=== PATIENT | female | born 1965 | race Caucasian/White ===

== ENCOUNTER 2024-04-20 10:30 | Outpatient (RCR) | payer BC, SELFPAY ==
[2024-04-14 09:36] VITALS: BMI 22.0
[2024-04-14 10:57] VITALS: BP 140/82; PULSE 80; TEMP 36.8
--- NOTE | 2024-04-14 10:57 | PC.ADMIT ---
Patient is a 58 year old female who was referred to [facility] by a friend secondary to increased depression, PTSD, and agoraphobia. Patient reports she has been depressed for the past couple of years and stressed over the pandemic and that's when her depression hit her hard having financial problems, issues with her son, and her 26 year old foster daughter moved in with her with her baby who has medical problems. Patient reports she has been drinking alcohol for the past 15 years on and off along with taking Antabuse on and off for 15 years. Reports last night she had 3 glasses of wine and drank a total of 5 drinks in 2 weeks including last night. Denied any sxs of withdrawal from alcohol. Prior to 2 weeks reports drinking a bottle of wine daily, on and off again. On for 4 days and off for 3 days. Stated she has been a, Heavy drinker for years especially during the pandemic . Few roth ago had 7 months sobriety on Vivitrol. Denied withdrawal symptoms when she stopped drinking at that time. Is interested in MAT with Vivitrol. Will make an appointment with [facility] for MAT. Patient reports on, April 27, 2024 fx rib and brain bleed. Got too drunk and fell off the stairs. Was in ICU for three days in the trauma center . Patient is alert and oriented x4. Calm and cooperative. She presented with depressed mood and anxious affect. Denied SI, No HI. She was given a copy of her safety plan if needed. She reports she has a lot of support from her family and friends. Medications reconciled with patient and patient's pharmacy. She is on MAT with Naltrexone.
--- NOTE | 2024-04-14 11:39 | PC.NURSE ---
Patient has a walk in appointment with [facility] for MAT on 04/20/24 at 1:00pm.
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
--- NOTE | 2024-04-18 15:14 | HO.PHP ---
PHP staff member met with Camryn during the end of group one due to her struggling. PHP staff member followed up with Camryn to explore what was currently affecting her. Camryn disclosed that she woke up feeling anxious and is struggling with a panic attack. Camryn disclosed that she would like to go home. PHP staff member noted that when people are struggling we strongly encourage that they stay because this is the place they need to be for support. PHP staff member asked Camryn if she feels her binge drinking over the weekend and discontinuing yesterday is what is currently causing her to feel this way. 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 Camryn continued to voice she wanted to go home because she doesn't want group members coming up to her and being kind because they knew she left group. PHP staff member stated that the next group is going to be split so she won't be in a group with everyone. Camryn explored what the group would be. PHP staff member informed her what the group topic is and strongly encouraged her to stay. Camryn expressed that she can't and needs to go home. PHP staff member explored what she will be doing at home. Camryn mentioned that she is going to go home and walk her dog and will be around individuals throughout the day. PHP staff member assessed any safety concerns. Camryn reported no concerns around SI, plan or intent and stated she will be in attendance to program tomorrow. PHP staff member was receptive.
--- NOTE | 2024-04-18 15:20 | HO.PHP ---
[facility] staff member contacted Camryn to follow up with her to see how the remainder of her day had gone. [facility] staff member left a voicemail and is awaiting a call back.
--- NOTE | 2024-04-19 15:30 | HO.PHP ---
PHP staff member followed up with Camryn to see how she is doing since she called out sick. Camryn disclosed that she is doing better and noted that yesterday was challenging for, in which she finds the group setting difficult. PHP staff member was receptive and acknowledged that group settings can be challenging and encouraged her to focus on what brought her to the program opposed to focusing on what others are going through. Camryn mentioned she is having a hard time doing that but is going to come to program tomorrow. PHP staff member assessed any safety concerns, Camryn disclosed no concerns around SI, plan or intent. PHP staff member explored when she last engaged in substance use, in which she voiced it was a couple days ago over the weekend. PHP staff was receptive. Camryn mentioned that she would like to talk to Dr. Booker around adrenaline blockers for her anxiety attacks. PHP staff member voiced that she will inform the nurse that she would like to meet with the provider. Camryn was receptive.
--- NOTE | 2024-04-20 13:11 | HO.PHP ---
PHP staff member faxed over a referral for OP therapy, radioisotope technician and med management to [facility]. PHP staff member is awaiting for the scheduled dates and times.
--- NOTE | 2024-04-20 15:00 | HO.PHP ---
Client's case has been opened and reviewed in team.
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
--- NOTE | 2024-04-20 18:26 | HO.PHPPROGNO ---
Subjective Subjective Date of Service: 04/20/24 Reason For Visit: bipolar,personality d/o Interim History: Patient see for follow-up. Still struggling with anxiety. Had a major panic attack on Wednesday which comes in clusters. I try wakling it off and eventually I will isolate until they have abated . Not been sleeping well, nightmares including dreams of drowning. She is interested in TMS but understands that she cant be actively drinking and continues to struggle with cravings and is scheduled for a Vivitrol injection today at 1pm. She is open to treatment for PTSD with prazosin to help mitigate this physical feelings. I feel like there are toxic chemicals coursing through my body Attending Groups: Yes Review of Systems Acute medical concerns: No Mental Status Exam Mental Status Exam Narrative: Alert, oriented, in no acute distress. Nervous, withdrawn. No psychomotor agitation or neurovegetative retardation. Eye contact intermittent. Mood anxious, affect constricted, depressed. Speech normal. Thought process linear, coherent. Thought content related to stressors, denies any hopelessness or SI. Denies any aggressive ideation or HI. No paranoia or delusional content elicited. No evidence of psychosis. Insight and judgment - fair but adequate. Diagnostics Vital Signs (24Hr): BMI result Body Mass Index 22.0 Assessment & Plan Assessment & Plan (1) Alcohol use with alcohol-induced disorder: Status: Acute Code(s): F10.99 - Alcohol use, unspecified with unspecified alcohol-induced disorder Assessment and Plan: compounding anxious distress, isolation and low mood (2) MDD (major depressive disorder), recurrent episode: Status: Acute Code(s): F33.9 - Major depressive disorder, recurrent, unspecified Assessment and Plan: hx of unspecified bipolar depression (3) Other specified episodic mood disorder: Status: Acute Code(s): F39 - Unspecified mood [affective] disorder Assessment and Plan: Cycothymia + SIMD r/o Bipolar II Disorder (4) Panic disorder with agoraphobia and moderate panic attacks: Status: Acute Code(s): F40.01 - Agoraphobia with panic disorder Assessment and Plan: with other mixed anxiety states (generalized anxiety, social anxiety, +/-AIAD) (5) Post traumatic stress disorder (PTSD): Status: Acute Code(s): F43.10 - Post-traumatic stress disorder, unspecified Assessment and Plan: r/o complex PTSD Hx of unspecified Personality Disorder r/o cluster b (borderline) and cluster c (avoidant) traits (6) Cannabis use disorder, mild, abuse: Status: Acute Code(s): F12.10 - Cannabis abuse, uncomplicated Assessment and Plan: r/o cannabis-induced anxiety disorder (exacerbating) (7) Personal history of traumatic brain injury: Status: Acute Code(s): Z87.820 - Personal history of traumatic brain injury Plan Start prazosin 1 mg qhs-bid PRN sleep, anxiety Consider AUD treatment/recovery options Anticipate routine lab work next week EKG, routine for baseline QTc for medication considerations UDS as indicated MassPat reviewed Continue to monitor Patient educated on: diagnosis, medication risk/benefits and substance abuse Informed Consent: understands Reason for contiued partial hosp. stay Substantial Risk for: inability to function and med/psych decompensation Certification I certify that partial hospital treatment is medically necessary due to the symptoms and problems resulting from the patient's mental illness and the failure to treat the patient at the partial hospital level of care would likely result in the patient requiring inpatient psychiatric care which could not be prevented at a less intensive level of care. Total time managing care of this patient today ___30_ minutes. Discharge Plan Discharge Attending provider: Nereyda Booker Medications: New prazosin 1 mg capsule 1 mg PO BEDTIME Qty: 20 0RF No Action naltrexone 50 mg tablet 50 mg PO DAILY Patient Comments: Last took a week ago. hydroxyzine HCl 10 mg tablet 10 mg PO BID PRN (Reason: anxiety) Stand Alone Forms: Patient Portal Discharge page Print Language: Icelandic
--- NOTE | 2024-04-21 08:26 | HO.PHP ---
PHP admin, Marilee, informed the team that Camryn will not be in attendance to program today because the individual who watches her granddaughter has COVID and there is no childcare. Camryn reported no safety concerns and will be here on Wednesday.
--- NOTE | 2024-04-21 10:42 | HO.PHP ---
[facility] staff member received a phone call from Deann through [facility] with the OP therapy appointment and med management appointment for [place]. [place] is intake OP therapy appointment is scheduled for May 01, 2024 at 10 AM with Macy Bustos at [address] [place] [address]. [place] has an med provider appointment scheduled with José Luis Mendoza on May 22, 2024 at 9 AM.
== END 2024-04-20 23:59 | disposition home or self-care (01) ==
LOC: HO.PHPA 10:30
PROVIDERS: Visit Provider Psychiatry & Neurology Psychiatry
DX: F33.9 Major depressive disorder, recurrent, unspecified (principal); F39 Unspecified mood [affective] disorder; F10.99 Alcohol use, unspecified with unspecified alcohol-induced disorder; F40.01 Agoraphobia with panic disorder; F43.10 Post-traumatic stress disorder, unspecified; F12.10 Cannabis abuse, uncomplicated; Z87.820 Personal history of traumatic brain injury
CPT/HCPCS: 90791; 90853

== ENCOUNTER → 2024-04-20 13:22 | Outpatient (BNVA) | payer BC, SELFPAY | PROVIDERS: Visit Provider Nurse Practitioner Psychiatric/Mental Health ==